=== PATIENT | female | born 1965 | race Caucasian/White ===

== ENCOUNTER 2021-11-19 12:28 | Inpatient (IN) ==
[2021-11-19] MEDS ORDERED: Acetaminophen 325 MG TABLET PO ONE (13:14)
[2021-11-19] MEDS ORDERED: Ondansetron 4 MG/2 ML VIAL IVP ONE (13:14)
[2021-11-19] MEDS ORDERED: 0.9 % Sodium Chloride 1,000 ML IVC ONE (13:14)
[2021-11-19 13:44] LABS: Hematocrit 44.3 % (35.3-44.9); Hemoglobin 14.6 g/dL (11.5-15.4); Lymphocytes # 0.3 K/mcL (0.6-4.6); Mean Corpuscular Hemoglobin 27.4 pg (28.0-33.3); Mean Corpuscular Volume 83.3 fL (83.0-100.0); Mean Platelet Volume 9.9 fL (9.4-12.4); Monocytes # 0.4 K/mcL (0.0-1.3); Platelet Count 134 K/mcL (140-400); Red Blood Count 5.32 M/mcL (3.82-4.97); Red Cell Distribution Width 13.3 % (11.5-14.5); White Blood Count 4.8 K/mcL (4.3-11.1)
[2021-11-19 14:05] LABS: Alanine Aminotransferase 63 Units/L (7-52); Albumin/Globulin Ratio 1.3 (1.1-2.2); Alkaline Phosphatase 69 Units/L (34-104); Aspartate Amino Transferase 57 Units/L (13-39); BUN/Creatinine Ratio 15 (6-26); Bilirubin,Direct 0.2 mg/dL (0.0-0.2); Bilirubin,Indirect 0.2 mg/dL (0.0-1.0); Bilirubin,Total 0.4 mg/dL (0.3-1.0); Blood Urea Nitrogen 13 mg/dL (6-20); Calcium 8.9 mg/dL (8.6-10.3); Carbon Dioxide 29 mEq/L (23-29); Chloride 96 mEq/L (98-107); Globulin 3.1 g/dL (2.4-3.5); Glucose 115 mg/dL (70-105); Osmolality,Calculated 279 (280-300); Sodium 134 mEq/L (136-145); Total Protein 7.1 g/dL (6.4-8.9); eGFR For African Americans > 60 (> 60); eGFR For Non-African Americans > 60 (> 60)
[2021-11-19 14:37] LABS: Neutrophils # 3.8 K/mcL (1.6-8.9)
[2021-11-19 14:38] LABS: Platelet Estimate Slight Decrease (Normal)
[2021-11-19] MEDS ORDERED: Benzonatate 100 MG CAPSULE PO ONE (14:46)
[2021-11-19] MEDS ORDERED: ALPRAZolam 0.25 MG TABLET PO PRN (16:21)
[2021-11-19] MEDS ORDERED: Acetaminophen 325 MG TABLET PO PRN (16:22)
[2021-11-19] MEDS ORDERED: Melatonin 3 MG TABLET PO PRN (16:22)
[2021-11-19] MEDS ORDERED: MOM Conc 10 ML UD.LIQ PO PRN (16:22)
[2021-11-19] MEDS ORDERED: Mag Hydrox/Al Hydrox/Simeth 30 ML UDC PO PRN (16:22)
[2021-11-19] MEDS ORDERED: Ondansetron 4 MG/2 ML VIAL IVP PRN (16:22)
[2021-11-19] MEDS ORDERED: Naloxone 0.4 MG/ML INJ IVP PRN (16:22)
[2021-11-19] MEDS: Ipratropium/Albuterol Neb 3 ML IH SCH ×2 (17:17→20:29)
[2021-11-19] MEDS: 0.9 % Sodium Chloride 1,000 ML IVC SCH (17:22)
[2021-11-19] MEDS: MethylPREDNISolone 40 MG/ML VIAL IVP SCH (17:31)
[2021-11-19] MEDS: GuaiFENesin/Codeine Oral Soln 5 ML UDC PO PRN (20:22)
[2021-11-20] MEDS: Ipratropium/Albuterol Neb 3 ML IH SCH ×3 (00:34→07:31)
[2021-11-20] MEDS: 0.9 % Sodium Chloride 1,000 ML IVC SCH (02:35)
[2021-11-20 04:23] LABS: Basophils % 0.1 %; Eosinophils # 0.3 K/mcL (0.0-0.6); Eosinophils % 3.4 %; Hematocrit 38.7 % (35.3-44.9); Hemoglobin 12.6 g/dL (11.5-15.4); Immature Granulocytes % 0.3 % (0-4); Lymphocytes # 0.8 K/mcL (0.6-4.6); Lymphocytes % 10.4 %; Mean Corpuscular HGB Conc 32.6 g/dL (31.6-35.5); Mean Corpuscular Hemoglobin 27.6 pg (28.0-33.3); Mean Corpuscular Volume 84.7 fL (83.0-100.0); Mean Platelet Volume 10.1 fL (9.4-12.4); Monocytes # 0.4 K/mcL (0.0-1.3); Monocytes % 5.3 %; Neutrophils # 6.2 K/mcL (1.6-8.9); Platelet Count 118 K/mcL (140-400); Red Blood Count 4.57 M/mcL (3.82-4.97); Red Cell Distribution Width 13.5 % (11.5-14.5); Segmented Neutrophils % 80.5 %; White Blood Count 7.7 K/mcL (4.3-11.1)
[2021-11-20 04:47] LABS: BUN/Creatinine Ratio 16 (6-26); Blood Urea Nitrogen 10 mg/dL (6-20); Calcium 8.4 mg/dL (8.6-10.3); Carbon Dioxide 28 mEq/L (23-29); Chloride 105 mEq/L (98-107); Glucose 116 mg/dL (70-105); Osmolality,Calculated 288 (280-300); Potassium 3.7 mEq/L (3.5-5.1); Sodium 139 mEq/L (136-145); eGFR For African Americans > 60 (> 60); eGFR For Non-African Americans > 60 (> 60)
[2021-11-20] MEDS: MethylPREDNISolone 40 MG/ML VIAL IVP SCH ×2 (06:15→17:44)
[2021-11-20] MEDS: GuaiFENesin/Codeine Oral Soln 5 ML UDC PO PRN ×2 (06:15→21:09)
[2021-11-20] MEDS: *HR* Enoxaparin 40 MG/0.4 ML SYRINGE SQ SCH (06:15)
[2021-11-20] MEDS: Cholecalciferol (D-3) 1,000 UNIT (25MCG) TABLET PO SCH (09:06)
[2021-11-20] MEDS ORDERED: Ipratropium/Albuterol Neb 3 ML IH PRN (11:00)
[2021-11-21] MEDS: MethylPREDNISolone 40 MG/ML VIAL IVP SCH (06:22)
[2021-11-21] MEDS: *HR* Enoxaparin 40 MG/0.4 ML SYRINGE SQ SCH (06:23)
[2021-11-21 06:37] VITALS: BP 113/59; PULSE 72; RESP 17; TEMP 98.1
[2021-11-21 07:13] LABS: Hemoglobin 12.3 g/dL (11.5-15.4); Mean Corpuscular HGB Conc 32.4 g/dL (31.6-35.5); Mean Corpuscular Hemoglobin 27.5 pg (28.0-33.3); Mean Corpuscular Volume 84.8 fL (83.0-100.0); Mean Platelet Volume 11.1 fL (9.4-12.4); Platelet Count 140 K/mcL (140-400); Red Blood Count 4.48 M/mcL (3.82-4.97); Red Cell Distribution Width 13.6 % (11.5-14.5); White Blood Count 7.5 K/mcL (4.3-11.1)
[2021-11-21 07:35] LABS: BUN/Creatinine Ratio 23 (6-26); Blood Urea Nitrogen 13 mg/dL (6-20); Calcium 8.9 mg/dL (8.6-10.3); Carbon Dioxide 27 mEq/L (23-29); Chloride 106 mEq/L (98-107); Glucose 104 mg/dL (70-105); Osmolality,Calculated 292 (280-300); Sodium 141 mEq/L (136-145); eGFR For African Americans > 60 (> 60); eGFR For Non-African Americans > 60 (> 60)
[2021-11-21 08:11] LABS: Lymphocytes # 1.7 K/mcL (0.6-4.6); Monocytes # 0.3 K/mcL (0.0-1.3); Neutrophils # 5.6 K/mcL (1.6-8.9); Platelet Estimate Normal (Normal); Reactive Lymphocytes Present (Not Present)
[2021-11-21] MEDS: Cholecalciferol (D-3) 1,000 UNIT (25MCG) TABLET PO SCH (08:57)
[2021-11-21] MEDS: GuaiFENesin/Codeine Oral Soln 5 ML UDC PO PRN (09:06)
[2021-11-21 13:41] VITALS: O2SAT 93
== END 2021-11-21 14:26 | disposition home or self-care (01) | DRG 193 ==
LOC: INPPIK 12:28 → EMEROOPIK 12:28 → INPPIK 15:39
PROVIDERS: ADMIT Internal Medicine; ATTEND Internal Medicine